=== PATIENT | female | born 1965 ===

== ENCOUNTER 2017-10-17 14:21 | Emergency (ER) | payer MEDICAID ==
[2017-10-17 14:52] VITALS: RESP 20
[2017-10-17 15:51] LABS: URINE BILIRUBIN NEGATIVE (NEGATIVE); URINE BLOOD NEGATIVE (NEGATIVE); URINE CLARITY Clear (Clear); URINE COLOR Straw (YELLOW); URINE GLUCOSE (UA) NORMAL (Normal); URINE LEUKOCYTE ESTERASE NEG Leu/uL (Negative); URINE PROTEIN NEGATIVE (NEGATIVE); URINE UROBILINOGEN NORMAL mg/dL (0.2-1.0)
[2017-10-17] MEDS ORDERED: Sodium Chloride 0.9% 1,000 ML IV STA (16:32)
[2017-10-17] MEDS ORDERED: Sodium Chloride 0.9% 1,000 ML ONE (16:44)
[2017-10-17 16:59] LABS: BASO % 0.4 % (0.0-2.0); EOS # 0.1 K/uL (0.0-0.7); EOS % 1.1 % (0.0-4.0); HEMOGLOBIN 13.5 g/dL (11.0-16.0); LYMPH # 2.6 K/uL (1.0-4.3); LYMPH % 37.2 % (20.0-40.0); MEAN CELL VOLUME 90.2 fL (81.0-99.0); MEAN CORPUSCULAR HEMOGLOBIN 30.4 pg (27.0-31.0); MEAN CORPUSCULAR HGB CONC 33.7 g/dL (33.0-37.0); MEAN PLATELET VOLUME 7.2 fL (7.2-11.7); MONO # 0.4 K/uL (0.0-0.8); MONO % 5.1 % (0.0-10.0); NEUT # 3.9 K/uL (1.8-7.0); NEUT % 56.2 % (50.0-75.0); NRBC % 0.1 % (0.0-2.0); RBC 4.45 Mil/uL (3.80-5.20); RED CELL DISTRIBUTION WIDTH 13.8 % (11.5-14.5)
[2017-10-17 17:11] LABS: BLOOD UREA NITROGEN 15 mg/dL (7-17); GFR AFRICAN-AMERICAN > 60; GFR NON-AFRICAN AMERICAN > 60
[2017-10-17 17:12] LABS: ALB/GLOB RATIO 1.4 (1.0-2.1); ALBUMIN 4.3 g/dL (3.5-5.0); ALT/SGPT 17 U/L (9-52); AST/SGOT 19 U/L (14-36); CALCIUM 8.7 mg/dl (8.6-10.4)
--- NOTE | 2017-10-17 17:15 | C.PDOC ---
History Of Present Illness 52 year old female presents to the ED complaining of left flank and left upper abdominal pain. Associated with some dysuria. Patient was seen by her doctor last Monday, given rx for Macrobid and Flexeril with no improvement. No fever, chills, nausea, or vomiting. Time Seen by Provider: 10/17/17 15:47 Chief Complaint (Nursing): Abdominal Pain History Per: Patient History/Exam Limitations: no limitations Onset/Duration Of Symptoms: Days (x 1 week) Current Symptoms Are (Timing): Still Present Past Medical History Reviewed: Historical Data, Nursing Documentation, Vital Signs Vital Signs: Last Vital Signs Temp 98 F 10/17/17 14:47 Pulse 77 10/17/17 14:47 Resp 20 10/17/17 14:47 BP 121/86 10/17/17 14:47 Pulse Ox 100 10/17/17 18:19 - Medical History PMH: No Chronic Diseases Surgical History: No Surg Hx Family History: States: No Known Family Hx - Social History Hx Alcohol Use: No Hx Substance Use: No - Immunization History Hx Tetanus Toxoid Vaccination: No Hx Influenza Vaccination: Yes (03/2017) Hx Pneumococcal Vaccination: No Review Of Systems Except As Marked, All Systems Reviewed And Found Negative. Constitutional: Negative for: Fever, Chills Gastrointestinal: Positive for: Abdominal Pain. Negative for: Nausea, Vomiting Genitourinary: Positive for: Dysuria. Negative for: Incontinence, Hematuria Musculoskeletal: Positive for: Back Pain (left flank) Physical Exam - Physical Exam Appears: Non-toxic, No Acute Distress Skin: Normal Color, Warm, Dry Head: Atraumatic, Normacephalic Eye(s): bilateral: Normal Inspection, PERRL, EOMI Nose: Normal Oral Mucosa: Moist Neck: Normal ROM, Supple Chest: Symmetrical Cardiovascular: Rhythm Regular, No Murmur Respiratory: Normal Breath Sounds, No Accessory Muscle Use Gastrointestinal/Abdominal: Soft, Tenderness (Mild tenderness to LUQ), No Guarding, No Rebound Back: CVA Tenderness (Left), No Vertebral Tenderness Extremity: Bilateral: Atraumatic, Normal Color And Temperature, Normal ROM Neurological/Psych: Oriented x3, Normal Speech ED Course And Treatment - Laboratory Results Result Diagrams: 10/17/17 16:55 10/17/17 16:55 Lab Interpretation: Normal O2 Sat by Pulse Oximetry: 100 (RA) Pulse Ox Interpretation: Normal - CT Scan/US CT Abd/Pelvis Other Rad Studies (CT/US): Read By Radiologist, Radiology Report Reviewed CT/US Interpretation: FINDINGS: LOWER THORAX: Unremarkable. LIVER: Unremarkable. No gross lesion or ductal dilatation. Incidental finding(s): Peripheral cyst 1 cm left hepatic lobe. GALLBLADDER AND BILE DUCTS: Unremarkable. PANCREAS: Unremarkable. No gross lesion or ductal dilatation. SPLEEN: Unremarkable. Incidental finding(s): Accessory splenule, a normal variant. ADRENALS: Unremarkable. No mass. KIDNEYS AND URETERS: Solitary 4 mm calculus lower pole right kidney. Otherwise, Unremarkable. No hydronephrosis. No solid mass. VASCULATURE: Unremarkable. No aortic aneurysm. BOWEL: Unremarkable. No obstruction. No gross mural thickening. APPENDIX: Unremarkable. Normal appendix. PERITONEUM: Unremarkable. No free fluid. No free air. LYMPH NODES: Unremarkable. No enlarged lymph nodes. BLADDER: Unremarkable. REPRODUCTIVE: Unremarkable. BONES: No acute fracture. OTHER FINDINGS: None. IMPRESSION: Nonobstructing 4 mm lower pole calculus right kidney. No acute findings related to/accounting for the clinical presentation. Additional benign and/or incidental findings described above. Progress Note: UA normal. Added on blood work and CT scan. Patient given IVF hydration in the ED. Blood work appears unremarkable. CT scan shows a kidney stone on the right, however pt is having pain on the left. Discussed w/ patient that pain is likely musculoskeletal in nature. Patient is stable for d/c home Disposition Counseled Patient/Family Regarding: Studies Performed, Diagnosis, Need For Followup, Rx Given - Disposition Disposition: HOME/ ROUTINE Disposition Time: 18:12 Condition: STABLE Additional Instructions: Follow up with PMD within 1-2 days. Return to ED if feel worse. Prescriptions: Lidocaine 5% [Lidoderm] 1 patch TP DAILY #30 patch Famotidine [Pepcid] 20 mg PO BID #20 tab Ketorolac Tromethamine [Toradol] 10 mg PO TID #30 tab diaZEpam [Valium] 2 mg PO TID #15 tab Instructions: Flank Pain (DC) Forms: [employer] (Eth[place]ian) Print Language: SLOVAK - POA Present On Arrival: None - Clinical Impression Clinical Impression: Flank pain - PA / BEAN WEIGHER / Resident Statement MD/DO has reviewed & agrees with the documentation as recorded. - Scribe Statement The provider has reviewed the documentation as recorded by the Scribe (Carlene Villar) All medical record entries made by the Scribe were at my direction and personally dictated by me. I have reviewed the chart and agree that the record accurately reflects my personal performance of the history, physical exam, medical decision making, and the department course for this patient. I have also personally directed, reviewed, and agree with the discharge instructions and disposition.
--- NOTE | 2017-10-17 18:07 | CT ---
PROCEDURE: CT Abdomen and Pelvis without intravenous contrast HISTORY: left flank/upper abdominal pain COMPARISON: None. TECHNIQUE: Unenhanced study. Neither oral nor intravenous contrast administered. Radiation dose: Total exam DLP = Total exam DLP = 922.28 mGy-cm. This CT exam was performed using one or more of the following dose reduction techniques: Automated exposure control, adjustment of the mA and/or kV according to patient size, and/or use of iterative reconstruction technique. FINDINGS: LOWER THORAX: Unremarkable. LIVER: Unremarkable. No gross lesion or ductal dilatation. Incidental finding(s): Peripheral cyst 1 cm left hepatic lobe GALLBLADDER AND BILE DUCTS: Unremarkable. PANCREAS: Unremarkable. No gross lesion or ductal dilatation. SPLEEN: Unremarkable. Incidental finding(s): Accessory splenule, a normal variant ADRENALS: Unremarkable. No mass. KIDNEYS AND URETERS: Solitary 4 mm calculus lower pole right kidney. Otherwise, Unremarkable. No hydronephrosis. No solid mass. VASCULATURE: Unremarkable. No aortic aneurysm. BOWEL: Unremarkable. No obstruction. No gross mural thickening. APPENDIX: Unremarkable. Normal appendix. PERITONEUM: Unremarkable. No free fluid. No free air. LYMPH NODES: Unremarkable. No enlarged lymph nodes. BLADDER: Unremarkable. REPRODUCTIVE: Unremarkable. BONES: No acute fracture. OTHER FINDINGS: None. IMPRESSION: Nonobstructing 4 mm lower pole calculus right kidney. No acute findings related to/accounting for the clinical presentation. Additional benign and/or incidental findings described above.
[2017-10-17 18:43] VITALS: BP 131/84; PULSE 68; TEMP 98.6
[2017-10-19 11:50] VITALS: O2SAT 100
== END 2017-10-17 18:41 | disposition home or self-care (01) ==
LOC: C.ER 14:21
DX: R10.12 Left upper quadrant pain (principal)
CPT/HCPCS: 74176; 80053; 81001; 85025; 96360; 99284; J7040